=== PATIENT | male | born 1965 | race Caucasian/White ===

== ENCOUNTER 2016-10-28 19:31 | Emergency (ER) | payer BC ==
[~2016-10-28] VITALS: Ht 170.2 cm; Wt 87.4 kg
[2016-10-28] MEDS ORDERED: TRAMADOL HYDROC50 MG PO (21:57)
[2016-10-28 22:15] VITALS: BP 112/71
== END 2016-10-28 22:15 | disposition home or self-care (01) | DRG 605 ==
LOC: ED 19:31
DX: S60.812A Abrasion of left wrist, initial encounter (principal); W01.0XXA Fall on same level from slipping, tripping and stumbling without subsequent striking against object, initial encounter; Y92.511 Restaurant or cafe as the place of occurrence of the external cause

== ENCOUNTER 2017-04-03 20:18 | Emergency (ER) | payer BC ==
[~2017-04-03] VITALS: Ht 170.2 cm; Wt 86.2 kg
[~2017-04-03 20:18] MED LIST: TRAMADOL HYDROC50 MG PO
[2017-04-03 22:20] VITALS: BP 149/84
== END 2017-04-03 22:20 | disposition home or self-care (01) | DRG 563 ==
LOC: ED 20:18
DX: S96.911A Strain of unspecified muscle and tendon at ankle and foot level, right foot, initial encounter (principal); X50.0XXA Overexertion from strenuous movement or load, initial encounter; Y93.01 Activity, walking, marching and hiking; Y92.481 Parking lot as the place of occurrence of the external cause